=== PATIENT | male | born 1980 | race Caucasian/White ===

== ENCOUNTER 2020-09-25 08:32 | Emergency (ER) | payer BC, OTHER ==
[~2020-09-25] VITALS: Ht 172.7 cm; Wt 97.8 kg
[2020-09-25] MEDS ORDERED: KETOROLAC 30 MG/ML 1ML VIAL IV ONE (09:40)
[2020-09-25] MEDS ORDERED: methocarbamoL 750 MG TAB PO ONE (09:40)
--- NOTE | 2020-09-25 09:51 | REP ---
INDICATION: chest pain. COMPARISON: None. TECHNIQUE: PA and lateral FINDINGS: The superior mediastinal structures are midline. The cardiac silhouette is unremarkable in size, shape, and position. The diaphragmatic surfaces of the lungs are regular, and the costophrenic angles are clear. The pulmonary dawson are clear. The imaged osseous structures are intact. IMPRESSION: There is no acute cardiopulmonary disease. <Electronically signed by Landon Mendiola > 09/25/20 0947
[2020-09-25] MEDS ORDERED: ISOVUE-370 76% 100ML VIAL As Ordered ONE (10:06)
[2020-09-25 10:23] LABS: BASO % 0.4 % (0.0-1.0); EOS % 0.1 % (0.0-3.0); HEMATOCRIT 42.8 % (42.0-52.0); LYMPH # 1.2 10^3/uL (1.5-5.0); LYMPH % 11.8 % (24.0-44.0); MEAN CORPUSCULAR HEMOGLOBIN 30.8 pg (27.0-33.0); MEAN CORPUSCULAR VOLUME 87.9 fl (80.0-96.0); MONO # 0.6 10^3/uL (0.0-0.8); MONO % 5.6 % (2.0-8.0); NEUTROPHILS # 8.2 10^3/uL (1.5-8.5); NEUTROPHILS % 81.7 % (36.0-66.0); PLATELET COUNT, AUTOMATED 217 10^3/uL (150-450); RED BLOOD COUNT 4.87 10^6/uL (4.30-6.10)
[2020-09-25 10:39] LABS: INR 0.94; PARTIAL THROMBOPLASTIN TIME 28.6 SECONDS (24.2-38.5); PROTHROMBIN TIME 12.8 SECONDS (12.5-14.3)
[2020-09-25 10:45] LABS: ALT/SGPT 21 U/L (12-78); BILIRUBIN,DIRECT 0.1 MG/DL (0.0-0.2); BILIRUBIN,TOTAL 0.4 MG/DL (0.2-1.0); CK-MB VALUE MASS < 1.0 NG/ML (<3.6); CPK CREATINE PHOSPHOKINASE 72 U/L (39-308); LIPASE 125 U/L (73-393); MB/CK RELATIVE INDEX 1.39 (< OR =4); TOTAL PROTEIN 7.1 GM/DL (6.4-8.2); TROPONIN I < 0.02 NG/ML (< 0.10)
--- NOTE | 2020-09-25 10:49 | REP ---
INDICATION: chest and back pain, constant, sudden onset. COMPARISON: Comparison chest x-rays from earlier this date.. TECHNIQUE: Contrast dose: 75 ML of Isovue [address] technique: Helical scanning is acquired and overlapping 1.5 mm and contiguous 3 mm axial images are reformatted. In addition, maximum intensity projection and multiplanar re-formation images are generated in sagittal and coronal imaging projections. 3D surface rendered color images of the aorta are generated as well. FINDINGS: There is good opacification of the thoracic aorta. It is normal in caliber and homogeneously enhances. There is no evidence of dissection or aneurysm. There is homogeneous although somewhat suboptimal opacification of the pulmonary arterial tree. Study was optimized for aortic enhancement.. The right thyroid is a little larger than the left. No mediastinal mass or hilar adenopathy is observed. No pleural or pericardial effusion is seen. No extra thoracic mass or adenopathy is seen. Lung window settings demonstrate no evidence of infiltrate or pulmonary parenchymal mass. No bony destructive lesion is appreciated. In the upper abdomen, normal adrenal glands are observed. There is mild diffuse fatty infiltration of the liver. There is pericholecystic fluid, gallbladder wall thickening and enhancement, and there are 2 or 3 large intraluminal gallstones. Question cholecystitis. The visualized upper abdominal structures are otherwise unremarkable. IMPRESSION: No CT evidence of acute aortic disease. No active cardiopulmonary disease seen. Cholelithiasis, gallbladder wall thickening, pericholecystic fluid raise question of cholecystitis. Mild diffuse fatty infiltration of the liver.. <Electronically signed by Jon Mariscal > 09/25/20 1047
[2020-09-25] MEDS ORDERED: METH-1165 PO (11:22)
[2020-09-25 11:41] VITALS: BP 131/84
--- NOTE | 2020-09-25 18:02 | ECGEPIP ---
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
--- NOTE | 2020-09-26 07:52 | ED PDOC ---
Post-Departure Follow-Up cta chest faxed to dr castro for fu Magdalena Castaneda MD Sep 26, 2020 07:52
== END 2020-09-25 11:47 | disposition home or self-care (01) ==
LOC: M ED 08:32
DX: M54.6 Pain in thoracic spine (principal); R07.9 Chest pain, unspecified; K82.9 Disease of gallbladder, unspecified
CPT/HCPCS: 36415; 71046; 71275; 80047; 80076; 82550; 82553; 83690; 84484; 85025; 85610; 85730; 93005; 96374; 99284; J1885; Q9967

== ENCOUNTER → 2021-01-30 | Outpatient (REF) | payer BC ==
[~2021-01-30] MED LIST: METH-1165 PO
== END ==
LOC: M SFHCPLAZ 14:52
DX: Z53.20 Procedure and treatment not carried out because of patient's decision for unspecified reasons (principal)

== ENCOUNTER → 2021-02-02 | Outpatient (CLI) | payer BC ==
[2021-02-02 11:32] LABS: HEMOGLOBIN A1c 4.8 %
[2021-02-02 12:04] LABS: BLOOD UREA NITROGEN 11 MG/DL (7-18); CALCIUM LEVEL 8.9 MG/DL (8.5-10.1); CARBON DIOXIDE LEVEL 26 MEQ/L (21-32); CHLORIDE LEVEL 108 MEQ/L (98-107); CHOLESTEROL LEVEL 163 MG/DL (<200); CHOLESTEROL RISK RATIO 3.622 (<5); GLOMERULAR FILTRATION RATE > 60.0 (>60); GLUCOSE, FASTING 88 MG/DL (70-100); HDL CHOLESTEROL 45 MG/DL (>40); LDL CHOLESTEROL 102 MG/DL (<100); NON-HDL-C 118 MG/DL; POTASSIUM SERUM 3.7 MEQ/L (3.5-5.1); SODIUM LEVEL 140 MEQ/L (136-145); TRIGLYCERIDES LEVEL 80 MG/DL (<150)
== END ==
LOC: M PLALAB 08:13
PROVIDERS: ATTEND Student in an Organized Health Care Education/Training Program
DX: F32.2 Major depressive disorder, single episode, severe without psychotic features (principal); E66.9 Obesity, unspecified

== ENCOUNTER → 2021-06-03 | Outpatient (CLI) | payer BC | LOC: M CARPUL 07:47 | PROVIDERS: ATTEND Student in an Organized Health Care Education/Training Program | DX: J45.909 Unspecified asthma, uncomplicated (principal) ==